=== PATIENT | male | born 1965 | race African-American/Black ===

== ENCOUNTER 2018-03-19 14:57 | Observation (INO) | payer MEDICARE, OTHER ==
[~2018-03-19] VITALS: Ht 180.3 cm; Wt 86.9 kg
[~2018-03-19 14:57] MED LIST: ABILIFY2 MG ORAL; AMBIEN10 MG ORAL; BENZTROPINE MESY2 MG ORAL; BRIMONIDINE TART5 ML BOTH EYES; CATAPRES0.1 MG ORAL; DIPHENHYDRAMINE25 M1 ORAL; FOLIC ACID1 MG ORAL; GERI-LANTA LIQ355 ML PO; KLONOPIN1 MG ORAL; LATANOPROST2.5 ML BOTH EYES; NEPHROVITE1 TAB ORAL; NORCO 5-325 TA1 EAC1 ORAL; PROPRANOLOL HCL20 MG ORAL; PROTONIX20 MG ORAL; RENAGEL800 MG ORAL; RISPERDAL1 MG PO; TRAZODONE HCL50 MG ORAL; TYLENOL EXTRA500 MG ORAL; VITAMIN D31000 UNI1 PO
[2018-03-19] MEDS ORDERED: Heparin Sod 1000 units/ml 10ml IV PRN (15:46)
[2018-03-19 16:04] VITALS: BP 149/80
[2018-03-19 16:33] LABS: HEMATOCRIT 31.8 % (42.0-52.0); HEMOGLOBIN 10.6 G/DL (14.2-18.0); MEAN CORPUSCULAR VOLUME 97 FL (80-99); PLATELET COUNT 82 K/UL (150-450); RED BLOOD COUNT 3.29 M/UL (4.70-6.10); RED CELL DISTRIBUTION WIDTH 14.7 % (11.6-14.8); WHITE BLOOD COUNT 3.4 K/UL (4.8-10.8)
[2018-03-19 16:34] LABS: LYMPHOCYTES % (AUTO) 26.2 % (20.0-45.0); NEUTROPHILS % (AUTO) 59.1 % (45.0-75.0)
[2018-03-19 16:35] LABS: BASOPHILS % (AUTO) 2.4 % (0.0-2.0); EOSINOPHILS % (AUTO) 2.3 % (0.0-3.0)
[2018-03-19 16:56] LABS: ANION GAP 9 mmol/L (5-15); BLOOD UREA NITROGEN 40 mg/dL (7-18); CALCIUM 8.8 MG/DL (8.5-10.1); CARBON DIOXIDE 27 MMOL/L (21-32); CHLORIDE 103 MMOL/L (98-107); POTASSIUM 5.6 MMOL/L (3.5-5.1); SODIUM 139 MMOL/L (136-145)
[2018-03-19 17:10] LABS: ALANINE AMINOTRANSFERASE 21 U/L (12-78); ALBUMIN 3.4 G/DL (3.4-5.0); ALBUMIN/GLOBULIN RATIO 0.8 (1.0-2.7); ALKALINE PHOSPHATASE 178 U/L (46-116); ASPARTATE AMINO TRANSFERASE 24 U/L (15-37); BILIRUBIN,TOTAL 0.3 MG/DL (0.2-1.0); CKMB 0.9 NG/ML (0.0-3.6); CREATINE KINASE 173 U/L (26-308)
[2018-03-19] MEDS ORDERED: DiphenhydrAMINE 50mg/ml Inj IVP ONE (17:15)
[2018-03-19] MEDS ORDERED: Sodium Polystyrene Sulfonate 15gm Powder ORAL ONE (17:15)
--- NOTE | 2018-03-19 17:22 | Emergency Room Report ---
History of Present Illness General Chief Complaint: Edema Source: Patient Present Illness HPI 52-year-old male presents ED for evaluation. Patient coming from assisted facility with increased generalized swelling 1 day. History of end- stage renal disease on dialysis. Last dialysis was Tuesday. Patient states he drank a lot of liquid over the weekend. Denies chest pain or shortness of breath. Denies fevers or chills. No other aggravating relieving factors. Denies any other associated symptoms Allergies: Coded Allergies: MEPERIDINE (Verified Adverse Reaction, Intermediate, 06/08/17) Patient History Past Medical History: DM, HTN, COPD, psych hx, renal disease, dialysis Past Surgical History: none Pertinent Family History: none Social History: Denies: smoking, alcohol use, drug use Immunizations: UTD Reviewed Nursing Documentation: PMH: Agreed; PSxH: Agreed Nursing Documentation-PMH Past Medical History: No History, Except For Hx Hypertension: Yes Hx COPD: Yes Hx Diabetes: Yes - Type 2 Hx Gastrointestinal Problems: Yes - GERD Hx Dialysis: Yes - M-W-F History Of Psychiatric Problem: Yes - Anxiety Disorder, Depressive Disorder, Schizo Review of Systems All Other Systems: negative except mentioned in HPI Physical Exam Vital Signs Date Time Temp Pulse Resp B/P (MAP) Pulse Ox O2 Delivery O2 Flow Rate FiO2 03/19/18 14:49 97.9 79 18 145/92 98 Room Air 97.9 Sp02 EP Interpretation: reviewed, normal General Appearance: no apparent distress, alert, GCS 15, non-toxic, other - generalized edema Head: normocephalic, atraumatic Eyes: bilateral eye normal inspection, bilateral eye PERRL ENT: hearing grossly normal, normal pharynx, no angioedema, normal voice Neck: full range of motion, supple/symm/no masses Respiratory: chest non-tender, lungs clear, normal breath sounds, speaking full sentences Cardiovascular #1: regular rate, rhythm, no edema Cardiovascular #2: 2+ carotid (R), 2+ carotid (L), 2+ radial (R), 2+ radial (L) , 2+ dorsalis pedis (R), 2+ dorsalis pedis (L) Gastrointestinal: normal bowel sounds, non tender, soft, non-distended, no guarding, no rebound Rectal: deferred Genitourinary: normal inspection, no CVA tenderness Musculoskeletal: back normal, gait/station normal, normal range of motion, non- tender Neurologic: alert, oriented x3, responsive, motor strength/tone normal, sensory intact, speech normal Psychiatric: judgement/insight normal, memory normal, mood/affect normal, no suicidal/homicidal ideation Reflexes: 3+ bicep (R), 3+ bicep (L), 3+ tricep (R), 3+ tricep (L), 3+ knee (R) , 3+ knee (L) Skin: normal color, no rash, warm/dry, well hydrated Lymphatic: no adenopathy Medical Decision Making Diagnostic Impression: Primary Impression: Fluid overload Qualified Codes: E87.70 - Fluid overload, unspecified Additional Impression: ESRD (end stage renal disease) on dialysis ER Course Hospital Course 52-year-old male presents ED with generalized edema, history of end-stage renal disease Differential diagnoses include: IL/unstable angina, fluid overload, CHF exacerabation, hyperkalemia, uremia Clinical course Patient placed on stretcher. on alarm security or surveillance monitor. After initial history and physical I ordered labs, EKG, chest x-ray labs reviewed- BUN/Cr elevated. K 5.6. no leukocytosis, hemoglobin/hematocrit stable EKG - NSR, twave inversions in lateral leads Chest x-ray- pulmonary congestion, cardiomegaly Given kayexelate. Case discussed with Dr. Dudley and he agreed to accept the patient to his service for further care and support patient will likely receive emergent dialysis today for fluid overload; patient is not complaining of SOB or chest pain I. I feel this is a highly complex case requiring extensive working including EKG/Rhythm strip, Xray/CT/US, Blood/urine lab work, repeat exams while in ED, and administration of strong opiates/narcotics for pain control, admission to hospital or close patient follow up. Diagnosis - fluid overload, ESRD on dialysis admitted to telemetry in serious condition Labs Test 03/19/18 16:18 White Blood Count 3.4 K/UL (4.8-10.8) Red Blood Count 3.29 M/UL (4.70-6.10) Hemoglobin 10.6 G/DL (14.2-18.0) Hematocrit 31.8 % (42.0-52.0) Mean Corpuscular Volume 97 FL (80-99) Mean Corpuscular Hemoglobin 32.1 PG (27.0-31.0) Mean Corpuscular Hemoglobin Concent 33.2 G/DL (32.0-36.0) Red Cell Distribution Width 14.7 % (11.6-14.8) Platelet Count 82 K/UL (150-450) Mean Platelet Volume 10.5 FL (6.5-10.1) Neutrophils (%) (Auto) 59.1 % (45.0-75.0) Lymphocytes (%) (Auto) 26.2 % (20.0-45.0) Monocytes (%) (Auto) 10.0 % (1.0-10.0) Eosinophils (%) (Auto) 2.3 % (0.0-3.0) Basophils (%) (Auto) 2.4 % (0.0-2.0) Sodium Level 139 MMOL/L (136-145) Potassium Level 5.6 MMOL/L (3.5-5.1) Chloride Level 103 MMOL/L (98-107) Carbon Dioxide Level 27 MMOL/L (21-32) Anion Gap 9 mmol/L (5-15) Blood Urea Nitrogen 40 mg/dL (7-18) Creatinine 10.0 MG/DL (0.55-1.30) Estimat Glomerular Filtration Rate 6.7 mL/min (>60) Glucose Level 86 MG/DL (74-106) Calcium Level 8.8 MG/DL (8.5-10.1) Total Bilirubin 0.3 MG/DL (0.2-1.0) Aspartate Amino Transf (AST/SGOT) 24 U/L (15-37) Alanine Aminotransferase (ALT/SGPT) 21 U/L (12-78) Alkaline Phosphatase 178 U/L (46-116) Total Creatine Kinase 173 U/L (26-308) Creatine Kinase MB 0.9 NG/ML (0.0-3.6) Creatine Kinase MB Relative Index 0.5 Troponin I 0.019 ng/mL (0.000-0.056) Pro-B-Type Natriuretic Peptide 10810 pg/mL (0-125) Total Protein 7.5 G/DL (6.4-8.2) Albumin 3.4 G/DL (3.4-5.0) Globulin 4.1 g/dL Albumin/Globulin Ratio 0.8 (1.0-2.7) EKG Diagnostic Results Rate: normal Rhythm: NSR ST Segments: other - twave inversion ASA given to the pt in ED: No Rhythm Strip Diag. Results EP Interpretation: yes Rhythm: NSR, no PVC's, no ectopy Chest X-Ray Diagnostic Results Chest X-Ray Diagnostic Results : Chest X-Ray Ordered: Yes # of Views/Limited/Complete: 1 View Indication: Other - edema EP Interpretation: Yes Interpretation: no consolidation, no effusion, no pneumothorax, no acute cardiopulmonary disease, other - cardiomegaly Impression: Other - cardiomegaly Electronically Signed by: Electronically signed by Wesley Amador MD Last Vital Signs Date Time Temp Pulse Resp B/P (MAP) Pulse Ox O2 Delivery O2 Flow Rate FiO2 03/19/18 16:04 97.9 70 20 149/80 98 Room Air 97.9 Status: improved Disposition: ADMITTED INPATIENT Condition: Serious Referrals: Verenice Dean MD (PCP) Wesley Amador MD Mar 19, 2018 17:22
[2018-03-19 17:29] VITALS: BP 132/81
[2018-03-19] MEDS ORDERED: SEROQUEL100 MG ORAL (18:12)
[2018-03-19] MEDS ORDERED: LISINOPRIL20 MG ORAL (18:12)
[2018-03-19] MEDS ORDERED: MIRTAZAPINE15 MG ORAL (18:12)
[2018-03-19] MEDS ORDERED: DiphenhydrAMINE 50mg/ml Inj IVP PRN (19:07)
[2018-03-19] MEDS ORDERED: Acetaminophen 500mg (ES) tab ORAL PRN (19:45)
[2018-03-19 20:00] VITALS: BP 147/89
[2018-03-19] MEDS: DiphenhydrAMINE 50mg/ml Inj IVP PRN (20:44)
[2018-03-19] MEDS ORDERED: Benztropine 1mg tab ORAL SCH (21:00)
[2018-03-20] VITALS: BP 140/80
[2018-03-20] MEDS: Norco 5mg/325mg tab ORAL PRN ×2 (01:11→19:41)
[2018-03-20 04:00] VITALS: BP 145/82
[2018-03-20 08:00] VITALS: BP 158/89
[2018-03-20] MEDS ORDERED: Lisinopril 20mg tab ORAL SCH (09:00)
[2018-03-20] MEDS: Brimonidine 0.2% Opth Sol BOTH EYES SCH ×2 (09:11→17:59)
[2018-03-20 09:14] LABS: HEMATOCRIT 31.5 % (42.0-52.0); HEMOGLOBIN 10.2 G/DL (14.2-18.0); MEAN CORPUSCULAR VOLUME 95 FL (80-99); PLATELET COUNT 75 K/UL (150-450); RED CELL DISTRIBUTION WIDTH 15.3 % (11.6-14.8); WHITE BLOOD COUNT 3.2 K/UL (4.8-10.8)
[2018-03-20 09:41] LABS: ALANINE AMINOTRANSFERASE 26 U/L (12-78); ALBUMIN 3.4 G/DL (3.4-5.0); ALBUMIN/GLOBULIN RATIO 0.9 (1.0-2.7); ALKALINE PHOSPHATASE 171 U/L (46-116); ANION GAP 10 mmol/L (5-15); ASPARTATE AMINO TRANSFERASE 17 U/L (15-37); BILIRUBIN,TOTAL 0.4 MG/DL (0.2-1.0); BLOOD UREA NITROGEN 35 mg/dL (7-18); CALCIUM 8.5 MG/DL (8.5-10.1); CARBON DIOXIDE 26 MMOL/L (21-32); CHLORIDE 105 MMOL/L (98-107); CREATININE 9.3 MG/DL (0.55-1.30); POTASSIUM 5.1 MMOL/L (3.5-5.1); SODIUM 141 MMOL/L (136-145)
--- NOTE | 2018-03-20 11:00 | Diagnostic Imaging Report ---
Indication: Dyspnea Comparison: 05/02/2007 A single view chest radiograph was obtained. Findings: Considering differences in lung volumes there is likely no significant change. Heart size is mildly prominent. Pulmonary vascularity is mildly prominent without overt CHF. There is a stent in the right upper arm and axilla. IMPRESSION: No acute disease
[2018-03-20 12:00] VITALS: BP 147/88
[2018-03-20 16:00] VITALS: BP 153/99
[2018-03-20] MEDS: DiphenhydrAMINE 50mg/ml Inj IVP PRN (16:48)
--- NOTE | 2018-03-20 17:45 | History and Physical Report ---
DATE OF ADMISSION: 03/19/2018 CHIEF COMPLAINT: Fluid overload. HISTORY OF PRESENT ILLNESS: This is a 52-year-old male, who I saw yesterday at his intermediate following complaints of fluid overload of 10 pounds. I was called by the nursing staff in the SNF about the patient gaining 10 pounds over one day. I went to the intermediate to see the patient with evidence of the severe edema on physical examination. The patient was rushed to this hospital emergency department for the admission and dialysis. PAST MEDICAL HISTORY: 1. End-stage renal failure on dialysis. 2. Hypertensive cardiovascular disease. 3. Schizophrenia. 4. Chronic obstructive pulmonary disease. 5. Glaucomatous somatic medical problems. MEDICATIONS: Alphagan eye drops, Klonopin, folic acid, lisinopril, Protonix, Renvela, Cogentin, Remeron, Seroquel, [place] p.r.n., Tylenol p.r.n., clonidine p.r.n., and Benadryl p.r.n. ALLERGIES: Meperidine. FAMILY HISTORY: Unremarkable. SOCIAL HISTORY: He lives in a intermediate. HABITS: He is a cigarette smoker. REVIEW OF SYSTEMS: HEENT: Hearing and eyesight are normal. ENDOCRINE: No history of diabetes, thyroid, or adrenal problems. RESPIRATORY: He has shortness of breath. CARDIOVASCULAR: He denies chest pain or palpitations. GASTROINTESTINAL: No history of hematochezia, melena, hematemesis, diarrhea, or constipation. GENITOURINARY: He denies dysuria, frequency, urgency, or hematuria. NEUROLOGIC: No history of stroke, syncope, or Parkinson disease. PSYCHIATRIC: Significant for history of schizophrenia. PHYSICAL EXAMINATION: GENERAL: This is a middle-aged male, who is very anxious. VITAL SIGNS: Blood pressure 153/99, pulse 82 and regular, respirations 20, and temperature 98. HEENT: The head is normocephalic and atraumatic. Pupils are equal, round, and reactive to light and accommodation consensually. NECK: Supple. Trachea midline. There was no lymphadenopathy or thyromegaly. LUNGS: Bilateral wheezes. HEART: Regular rate and rhythm without rubs, murmurs, or gallops. ABDOMEN: Soft and nontender. Bowel sounds were active. EXTREMITIES: Notable for 4+ bilateral lower extremity edema. NEUROLOGICAL: He is alert and oriented x4. Cranial nerves II through XII are intact. LABORATORY AND ANCILLARY DATA: CBC, hemoglobin 10.2, WBC 3.2, otherwise within normal limits. Serum chemistry on admission yesterday potassium 5.6, BUN 40, creatinine 10. Chest x-ray, no acute disease. ASSESSMENT: 1. Fluid overload. 2. Psychogenic drinking. 3. End-stage renal failure on dialysis. 4. Hypertensive cardiovascular disease. 5. Schizophrenia. 6. Chronic obstructive pulmonary disease. 7. Glaucomatous somatic medical problems. PLAN: 1. Loxu-sm-qmme daily dialysis with at least 3.5 L removal to be done. 2. Discharge post-dialysis to his intermediate. Verenice Dean M.D. DR: JEROME JOB#: [id number] CC: RIGO
--- NOTE | 2018-03-21 07:58 | Cardiology Report ---
APPROVED REPORT EKG Measurement Heart [id number] Normal sinus rhythm Possible Left atrial enlargement Abnormal ECG
--- NOTE | 2018-03-24 13:22 | Discharge Summary ---
Discharge Summary Discharge Summary _ DATE OF ADMISSION: 03/19/2018 DATE OF DISCHARGE: 03/20/2018 BRIEF HOSPITAL COURSE: Patient is a 52-year-old -[place], who was seen the day prior at the long term with complaints of fluid overload of 10 pounds. He was seen with evidence of severe edema on physical examination. He was then rushed to [facility] for admission and dialysis. He has medical history significant for end-stage renal failure, hypertensive cardiovascular disease, schizophrenia, COPD. On evaluation at ED, vital signs were stable. Creatinine was elevated to 10, BUN 40, potassium was 5.6. EKG done showed normal sinus rhythm with T-wave inversions in the lateral leads. Chest x-ray showed mildly prominent pulmonary vascularity; no acute disease. He was given Kayexalate. He was then admitted for fluid overload. He was admitted under observation. He was given inpatient hemodialysis. USP medications were continued. He was eventually discharged back to long term post-dialysis. FINAL DIAGNOSES: Fluid overload Psychogenic drinking End-stage renal failure on dialysis Hypertensive cardiovascular disease Schizophrenia COPD Somatic medical problems DISPOSITION: Patient was discharged to [facility][1]. DISCHARGE MEDICATIONS: Refer to Discharge Medication List. I have been assigned to dictate discharge summary on this account, and I was not involved in the patient's management. Soraya Garza NP Mar 24, 2018 13:22
== END 2018-03-20 20:35 ==
LOC: EDBD 14:57 → EMR 15:55 → INTOOBSV 16:02 → 2E 16:02 → EDBEDREQ 16:39 → 2E 17:21
DX: E87.70 Fluid overload, unspecified (principal); F45.8 Other somatoform disorders; E11.22 Type 2 diabetes mellitus with diabetic chronic kidney disease; I13.11 Hypertensive heart and chronic kidney disease without heart failure, with stage 5 chronic kidney disease, or end stage renal disease; N18.6 End stage renal disease; Z99.2 Dependence on renal dialysis; J44.9 Chronic obstructive pulmonary disease, unspecified; K21.9 Gastro-esophageal reflux disease without esophagitis; F41.9 Anxiety disorder, unspecified; F32.9 Major depressive disorder, single episode, unspecified; F20.9 Schizophrenia, unspecified; I51.7 Cardiomegaly; F17.210 Nicotine dependence, cigarettes, uncomplicated
CPT/HCPCS: 36415 ×2; 71045; 80053 ×2; 82550; 82553; 83880; 84484; 85007; 85025 ×2; 87081 ×2; 93005; 96374; 96375; 99285; G0378 ×2; J1200 ×2